=== PATIENT | male | born 1970 | race Caucasian/White ===

== ENCOUNTER 2017-10-18 19:21 | Emergency (ER) | payer OTHER ==
[~2017-10-18] VITALS: Ht 180.3 cm; Wt 102.1 kg
[~2017-10-18 19:21] MED LIST: ABAT250V; ALBU90OI; ALBU90OI INH; ALBU90OI6 INH; ASPI81CH PO; Augmentin 875-1 EACH PO; CARV25 PO; CIPR500 PO; CLIN150 PO; CLIN300 PO; CYCL10 PO; Cleocin HCl150 MG PO; FURO20 PO; GUAI600T33 PO; HYDACE5 PO; IBUP400 PO; LABE100 PO; LEVO750 PO; LOSA25 PO; MULTI VITAMIN1 EACH; NAPR500 PO; NAPR550 PO; NEOPOLDEXO LEFTEYE; Norco 5-325 Ta1 EACH PO; OXYACE5T PO; PROACE100 PO; Prednisone20 MG PO; RXPROACE PO; SERT25 PO; SPIR25 PO; ZOLP10 PO
[2017-10-18 19:45] LABS: BASOPHILS ABSOLUTE AUTO 0.06 K/mm3 (0.00-0.23); BASOPHILS PERCENT AUTO 1 % (0-2); EOSINOPHILS ABSOLUTE AUTO 0.18 K/mm3 (0.00-0.68); EOSINOPHILS PERCENT AUTO 2 % (0-6); Hematocrit 44.3 % (37.0-53.0); Hemoglobin 14.5 g/dL (13.5-17.5); IMMATURE GRAN ABSOLUTE AUTO 0.02 K/mm3 (0.00-0.10); IMMATURE GRAN PERCENT AUTO 0 % (0-1); LYMPHOCYTES ABSOLUTE AUTO 1.14 K/mm3 (0.84-5.20); LYMPHOCYTES PERCENT AUTO 14 % (21-46); MONOCYTES ABSOLUTE AUTO 0.71 K/mm3 (0.16-1.47); MONOCYTES PERCENT AUTO 9 % (4-13); Mean Corpuscular HGB 30.7 pg (26.0-34.0); Mean Corpuscular HGB Conc 32.7 g/dL (31.5-36.5); Mean Corpuscular Volume 94 fL (80-100); Mean Platelet Volume 11.2 fL (9.1-12.4); NEUTROPHILS ABSOLUTE AUTO 6.12 K/mm3 (1.96-9.15); NEUTROPHILS PERCENT AUTO 74 % (41-73); Platelet Count 226 K/mm3 (150-400); RDW Standard Deviation 48.3 fL (35.1-46.3); Red Blood Cell Count 4.72 M/mm3 (4.30-5.90); White Blood Cell Count 8.23 K/mm3 (4.00-11.30)
[2017-10-18 20:05] LABS: Alanine Aminotransfer (ALT/SGP 49 U/L (12-78); Albumin, Blood 3.2 g/dL (3.4-5.0); Albumin/Globulin Ratio 0.8 (0.8-1.8); Alk Phos 93 U/L (50-136); Anion Gap 8 mmol/L (6-16); Aspartate Aminotrans (AST/SGOT 27 U/L (12-37); Blood Urea Nitrogen 21 mg/dL (8-24); Bun/Creatinine Ratio 17.8 (12.0-20.0); CO2, Blood 23 mmol/L (21-32); Calcium, Blood 8.4 mg/dL (8.5-10.1); Chloride, Blood 108 mmol/L (98-108); Creatinine, Blood 1.18 mg/dL (0.60-1.20); Globulin, Blood 4.1 g/dL (2.2-4.0); Glomerular Filtration Rate >60 (60-); Glucose, Blood 79 mg/dL (70-99); Potassium, Blood 4.4 mmol/L (3.5-5.5); Sodium, Blood 139 mmol/L (136-145); Total Protein, Blood 7.3 g/dL (6.4-8.2); Troponin I <0.015 ng/mL (0.000-0.040)
[2017-10-28] MEDS ORDERED: FURO40 PO (12:38)
[2017-10-28] MEDS ORDERED: ENTRESTO 24 MG1 EACH PO (12:39)
[2017-10-28] MEDS ORDERED: SERT50 PO (12:40)
[2017-10-28] MEDS ORDERED: Advil200 M1 PO (12:42)
== END 2017-10-18 22:06 | disposition home or self-care (01) ==
LOC: ER 19:21
PROVIDERS: Emergency Medicine
DX: I11.0 Hypertensive heart disease with heart failure (principal); I50.9 Heart failure, unspecified; Z88.8 Allergy status to other drugs, medicaments and biological substances; Z88.1 Allergy status to other antibiotic agents; Z79.899 Other long term (current) drug therapy; Z79.82 Long term (current) use of aspirin; Z87.01 Personal history of pneumonia (recurrent)
CPT/HCPCS: 36415; 71046; 80053; 83880; 84484; 85025; 93005; 93010; 94640; 96374; 99284; J1940

== ENCOUNTER 2017-10-29 09:37 | Day surgery (SDC) | payer OTHER ==
[~2017-10-29] VITALS: Ht 180.3 cm; Wt 107.0 kg
[~2017-10-29 09:37] MED LIST changes: +Advil200 M1 PO; +ENTRESTO 24 MG1 EACH PO; +FURO40 PO; +SERT50 PO
[2017-10-30] MEDS ORDERED: HYDR-86 PO (08:32)
== END 2017-10-30 09:40 | disposition home or self-care (01) ==
LOC: MHTC 09:37 → PCU 09:37 → MHTC 09:38 → PCU 12:38 → MHTC 22:36
PROC: 0JH608Z Insertion of Defibrillator Generator into Chest Subcutaneous Tissue and Fascia, Open Approach (ICD-10-PCS; principal; 2017-10-29)
PROC: 0JH60PZ Insertion of Cardiac Rhythm Related Device into Chest Subcutaneous Tissue and Fascia, Open Approach (ICD-10-PCS; principal; 2017-10-29)
DX: I42.0 Dilated cardiomyopathy (principal); I50.9 Heart failure, unspecified; Z88.1 Allergy status to other antibiotic agents; Z79.82 Long term (current) use of aspirin; Z79.899 Other long term (current) drug therapy; Z88.8 Allergy status to other drugs, medicaments and biological substances
CPT/HCPCS: 33270; 71046; 93005; 93010; C1722; C1896; J0690; J1644; J2250; J2405; J3010; J7030; J7040

== ENCOUNTER 2018-05-21 09:18 | Emergency (ER) | payer OTHER ==
[~2018-05-21] VITALS: Ht 180.3 cm; Wt 106.6 kg
[~2018-05-21 09:18] MED LIST changes: +HYDR-86 PO
[2018-05-21] MEDS ORDERED: Veetids 500500 MG PO (10:09)
[2018-05-21] MEDS ORDERED: Ultram50 MG PO (10:09)
== END 2018-05-21 11:35 | disposition home or self-care (01) ==
LOC: ER 09:18
DX: K04.7 Periapical abscess without sinus (principal); I11.0 Hypertensive heart disease with heart failure; I50.9 Heart failure, unspecified; Z88.8 Allergy status to other drugs, medicaments and biological substances; Z88.1 Allergy status to other antibiotic agents; Z79.899 Other long term (current) drug therapy; Z79.82 Long term (current) use of aspirin
CPT/HCPCS: 36415; 41800; 96365; 96375; 99282-25; J0696; J1885

== ENCOUNTER 2019-01-24 10:17 | Emergency (ER) | payer OTHER ==
[~2019-01-24] VITALS: Ht 180.3 cm; Wt 113.4 kg
[~2019-01-24 10:17] MED LIST changes: +Ultram50 MG PO; +Veetids 500500 MG PO
[2019-01-24] MEDS ORDERED: WARF5 PO (10:59)
[2019-01-24] MEDS ORDERED: ATOR80 PO (11:00)
[2019-01-24] MEDS ORDERED: TAMS.4ER PO (11:01)
[2019-01-24] MEDS ORDERED: LOSA25 PO (11:03)
== END 2019-01-24 12:19 | disposition home or self-care (01) ==
LOC: ER 10:17
DX: S61.216A Laceration without foreign body of right little finger without damage to nail, initial encounter (principal); W26.0XXA Contact with knife, initial encounter; Z88.8 Allergy status to other drugs, medicaments and biological substances; Z88.1 Allergy status to other antibiotic agents; Z79.899 Other long term (current) drug therapy; Z79.01 Long term (current) use of anticoagulants; Z79.82 Long term (current) use of aspirin; I11.0 Hypertensive heart disease with heart failure; I50.9 Heart failure, unspecified
CPT/HCPCS: 12001; 99282-25

== ENCOUNTER 2021-04-30 16:41 | Emergency (ER) | payer OTHER ==
[~2021-04-30] VITALS: Ht 180.3 cm; Wt 120.2 kg
[~2021-04-30 16:41] MED LIST changes: +ATOR80 PO; +TAMS.4ER PO; +WARF5 PO
[2021-04-30] MEDS ORDERED: Bactrim Ds Tab1 EACH PO (17:08)
[2021-04-30] MEDS ORDERED: CEPH500 PO (17:08)
== END 2021-04-30 17:18 | disposition home or self-care (01) ==
LOC: ER 16:41
DX: L03.113 Cellulitis of right upper limb (principal); L02.413 Cutaneous abscess of right upper limb; L03.313 Cellulitis of chest wall; J86.9 Pyothorax without fistula; I11.0 Hypertensive heart disease with heart failure; I50.9 Heart failure, unspecified; Z88.8 Allergy status to other drugs, medicaments and biological substances; Z88.1 Allergy status to other antibiotic agents; Z79.899 Other long term (current) drug therapy; Z79.01 Long term (current) use of anticoagulants; Z79.82 Long term (current) use of aspirin
CPT/HCPCS: 99282

== ENCOUNTER 2022-04-03 16:57 | Emergency (ER) | payer MEDICARE, OTHER ==
[~2022-04-03] VITALS: Ht 177.8 cm; Wt 106.6 kg
[~2022-04-03 16:57] MED LIST changes: +Bactrim Ds Tab1 EACH PO; +CEPH500 PO
[2022-04-03 18:18] LABS: International Normalized Ratio 1.09; Prothrombin Time Results 11.4 Sec (9.7-11.5)
== END 2022-04-03 19:38 | disposition home or self-care (01) ==
LOC: ER 16:57
PROVIDERS: Physician Assistant
DX: S61.215A Laceration without foreign body of left ring finger without damage to nail, initial encounter (principal); I11.0 Hypertensive heart disease with heart failure; I50.9 Heart failure, unspecified; Z79.899 Other long term (current) drug therapy; Z79.01 Long term (current) use of anticoagulants; Z79.82 Long term (current) use of aspirin; W26.0XXA Contact with knife, initial encounter
CPT/HCPCS: 36415; 85610; A9270

== ENCOUNTER 2022-09-19 06:39 | Day surgery (SDC) | payer MEDICARE, OTHER ==
[~2022-09-19] VITALS: Ht 180.3 cm; Wt 113.1 kg
[2022-09-19] MEDS ORDERED: ENOX40I (07:29)
[2022-09-19] MEDS ORDERED: POTCHL20ER (07:29)
[2022-09-19] MEDS ORDERED: SPIR25 (07:29)
[2022-09-19] MEDS ORDERED: MAGNESIUM OXID500 MG (07:29)
[2022-09-19] MEDS ORDERED: FURO40 (07:30)
--- NOTE | 2022-09-19 08:04 | NUR ---
09/19/22 0804 Kierra Camara THREE ATTEMPTS AT IV. FIRST ATTEMPT IN L AC INFILTRATED BY MA. SECOND ATTEMPT BY MA IN L FOREARM INFILTRATED. THIRD ATTEMPT BY MA IN R HAND SUCESSFUL.
== END 2022-09-19 09:25 | disposition home or self-care (01) ==
LOC: ORSCSDS 06:39
PROVIDERS: Internal Medicine Gastroenterology
PROC: 0DBN8ZX Excision of Sigmoid Colon, Via Natural or Artificial Opening Endoscopic, Diagnostic (ICD-10-PCS; principal; 2022-09-19 08:00)
DX: R19.5 Other fecal abnormalities (principal); D12.5 Benign neoplasm of sigmoid colon; I42.9 Cardiomyopathy, unspecified; I10 Essential (primary) hypertension; I63.9 Cerebral infarction, unspecified; E66.9 Obesity, unspecified; Z68.34 Body mass index [BMI] 34.0-34.9, adult; Z79.01 Long term (current) use of anticoagulants; Z79.899 Other long term (current) drug therapy
CPT/HCPCS: 82947; 88305; J2704; J7120

== ENCOUNTER 2023-06-02 23:45 | Inpatient (IN) | payer MEDICARE, OTHER ==
[~2023-06-02] VITALS: Ht 180.3 cm; Wt 120.4 kg
[~2023-06-02 23:45] MED LIST changes: -ATOR80 PO; -CARV25 PO; +Carvedilol12.5 MG PO; +ENOX40I; +LIPITOR80 MG PO; +MAGNESIUM OXID500 MG PO; +POTCHL20ER PO
[2023-06-03 01:20] LABS: BASOPHILS ABSOLUTE AUTO 0.04 K/mm3 (0.00-0.23); BASOPHILS PERCENT AUTO 0 % (0-2); EOSINOPHILS ABSOLUTE AUTO 0.05 K/mm3 (0.00-0.68); EOSINOPHILS PERCENT AUTO 0 % (0-6); IMMATURE GRAN ABSOLUTE AUTO 0.07 K/mm3 (0.00-0.10); IMMATURE GRAN PERCENT AUTO 1 % (0-1); LYMPHOCYTES ABSOLUTE AUTO 0.87 K/mm3 (0.84-5.20); LYMPHOCYTES PERCENT AUTO 7 % (21-46); MONOCYTES ABSOLUTE AUTO 1.75 K/mm3 (0.16-1.47); MONOCYTES PERCENT AUTO 13 % (4-13); Mean Corpuscular HGB 32.1 pg (26.0-34.0); Mean Corpuscular HGB Conc 34.8 g/dL (31.5-36.5); Mean Corpuscular Volume 92 fL (80-100); Mean Platelet Volume 11.5 fL (9.1-12.4); NEUTROPHILS ABSOLUTE AUTO 10.32 K/mm3 (1.96-9.15); NEUTROPHILS PERCENT AUTO 79 % (41-73); Platelet Count 219 K/mm3 (150-400); RDW Coefficient Variation 14.2 % (11.7-14.2); RDW Standard Deviation 48.1 fL (35.1-46.3); Red Blood Cell Count 4.98 M/mm3 (4.30-5.90)
[2023-06-03 01:31] LABS: Albumin, Blood 3.4 g/dL (3.4-5.0); Albumin/Globulin Ratio 0.8 (0.8-1.8); Bilirubin, Total 3.5 mg/dL (0.1-1.0); Bun/Creatinine Ratio 10.1 (12.0-20.0); Calcium, Blood 8.7 mg/dL (8.5-10.1); Creatinine, Blood 0.99 mg/dL (0.60-1.20); Globulin, Blood 4.5 g/dL (2.2-4.0); Potassium, Blood 4.5 mmol/L (3.5-5.5); Total Protein, Blood 7.9 g/dL (6.4-8.2)
[2023-06-03 03:33] LABS: Influenza A, PCR NEGATIVE (NEGATIVE); Influenza B, PCR NEGATIVE (NEGATIVE); Resp Syncytial Virus, PCR NEGATIVE (NEGATIVE); SARS-Cov-2 (COVID-19) PCR, MMC NEGATIVE (NEGATIVE)
--- NOTE | 2023-06-03 07:31 | NUR ---
ARRIVAL TO PCU: Report recieved from [facility] ED RN. Patient arrived to PCU 12 vai gurney and was able to ambulate to the bed. He is alert and oriented x4. He has a history of stroke with some residual right sided weakness and some expressive aphasia. He is diaphoretic with beads of sweat on his head and cheeks. He states he has been having chest pain and shortness of breath "for a couple of days now." He is currently having 5/10 chest pain, he states the nitro worked well for his pain in the ambulance. HRR, SR in the 80s, pt has ICD. LS Clear with some crackles noted in the bases, Biox is high 90s on 2L via NC. Pt is tachypnec with activity. He states his chest pain gets worse with deep inspiration. BT+. PPP. Patient oriented to call light and room. field clerk Christine at bedside to complete history and medication list.
[2023-06-03 08:07] VITALS: BP 150/124
[2023-06-03 09:07] LABS: International Normalized Ratio 1.26; Prothrombin Time Results 13.1 Sec (9.7-11.5)
[2023-06-03] MEDS ORDERED: FURO40 PO (10:24)
[2023-06-03 11:53] VITALS: BP 107/83
[2023-06-03 15:20] VITALS: BP 104/74
--- NOTE | 2023-06-03 18:40 | NUR ---
SUMMARY: Patient was an admission from the emergency room this morning. He he has been alert and oriented T/O the shift. He has a history of CVA with some residual right sided deficits and expressive aphasia. HRR T/O the shift he has been SR-ST with a rate in the 90s-low 100s. He has an ICD. He has been C/O chest pain that is worse with deep inspiration, one dose of IV Fentanyl was given early in the shift. LS clear with crackles in the bases, he was positive for a PE and pneumonia. Biox has been high 90s at rest, with activity he gets tachypnec and his saturations drop- 2l O2 with activity. BT+, he is having some diarrhea which is new. PPP. VSS T/O the shift. He has been able to ambulate to the bathroom with a SBA using a cane on the right side. He has a Hep gtt running at 20 units/kg/hr. No other changes this shift. Will report to oncoming RN.
[2023-06-03 19:29] LABS: U Cannabinoids Screen DETECTED
[2023-06-03 19:30] LABS: U Amphetamine Screen DETECTED; U Barbituate Screen Not Detected; U Benzodiazapine Screen Not Detected; U Buprenorphine Screen Not Detected; U Cocaine Screen Not Detected; U Methadone Screen Not Detected; U Methamphetamine Screen DETECTED; U Opiates Screen Not Detected; U Oxycodone Screen Not Detected; U Phencyclidine Screen Not Detected; U Propoxyphene Screen Not Detected
[2023-06-03 21:05] VITALS: BP 114/83
[2023-06-03 23:33] VITALS: BP 109/74
[2023-06-04 03:48] VITALS: BP 99/74
[2023-06-04 04:07] LABS: BASOPHILS ABSOLUTE AUTO 0.03 K/mm3 (0.00-0.23); BASOPHILS PERCENT AUTO 0 % (0-2); EOSINOPHILS ABSOLUTE AUTO 0.02 K/mm3 (0.00-0.68); EOSINOPHILS PERCENT AUTO 0 % (0-6); Hematocrit 44.2 % (37.0-53.0); IMMATURE GRAN ABSOLUTE AUTO 0.05 K/mm3 (0.00-0.10); IMMATURE GRAN PERCENT AUTO 0 % (0-1); LYMPHOCYTES ABSOLUTE AUTO 0.82 K/mm3 (0.84-5.20); LYMPHOCYTES PERCENT AUTO 6 % (21-46); MONOCYTES PERCENT AUTO 12 % (4-13); Mean Corpuscular HGB 32.3 pg (26.0-34.0); Mean Corpuscular HGB Conc 33.9 g/dL (31.5-36.5); Mean Corpuscular Volume 95 fL (80-100); NEUTROPHILS PERCENT AUTO 82 % (41-73); Platelet Count 206 K/mm3 (150-400); RDW Coefficient Variation 14.3 % (11.7-14.2); RDW Standard Deviation 49.9 fL (35.1-46.3); Red Blood Cell Count 4.65 M/mm3 (4.30-5.90); White Blood Cell Count 14.72 K/mm3 (4.00-11.30)
[2023-06-04 04:32] LABS: Albumin/Globulin Ratio 0.7 (0.8-1.8); Bilirubin, Total 3.1 mg/dL (0.1-1.0); Calcium, Blood 8.1 mg/dL (8.5-10.1); Creatinine, Blood 1.07 mg/dL (0.60-1.20); Globulin, Blood 4.4 g/dL (2.2-4.0); Potassium, Blood 4.5 mmol/L (3.5-5.5); Total Protein, Blood 7.4 g/dL (6.4-8.2)
--- NOTE | 2023-06-04 05:30 | NUR ---
SHIFT SUMMARY PT REMAINS A/O X4. PT HAS BEEN ABLE TO MAKE NEEDS KNOWN AND PARTICIPATE IN CONVERSATION. PT HAS HX OF RIGHT SIDED CVA, RIGHT SIDED WEAKNESS NOTED. PT ALSO HAS SOME EXPRESSIVE APHASIA. PT ABLE TO AMBULATE WITH CANE SBA WITH BATHROOM PRIVLEGES. PT ON 2 L N/C, O2 SATS > 95%. PT CONTINUES TO HAVE HEMOPTYSIS, MODERATE AMOUNT. PT HAD EPISODE OF FEELING LIKE HE WAS VOMITTING, NOTHING OBSERVED IN EMESIS BAG EXCEPT FOR HEMOPTYSIS. CARDIAC MONITORING HAS REFLECTED NSR THIS SHIFT, HR 90s. HEPARIN GTT INFUSING. BLE PULSES PALPABLE. SENSATION INTACT IN RIGHT LEG. PT HAS HAD 1 EPISODE OF DIARRHEA THIS SHIFT. WILL CONTINUE TO MONITOR UNTIL CARE IS TRANSITIONED TO DAY SHIFT.
--- NOTE | 2023-06-04 08:15 | NUR ---
AM ASSESSMENT: Pt sitting up in chair finishing breakfast. Pt appears uncomfortable, especially with cough and deep breath. Rates pain 7/10. Will notify physician. LS with crackles and exp wheeze noted. Coughing up thick, bloody sputum. HR reg. BT positive. Pulses palp. R leg with +1 edema noted. Denies pain in leg. Grasps equal but weak. Pt Oriented x 4, sometimes slow to answer. Call light in reach. Will continue to monitor.
[2023-06-04 08:36] VITALS: BP 117/85
[2023-06-04 11:05] VITALS: BP 110/84
--- NOTE | 2023-06-04 13:16 | NUR ---
update: Pt resting in bed. States pain is improved and rates it a 11/24. Was able to titrate patient off of oxygen, biox 94% on RA. Pt tolerating well. Call light in reach. Will continue to monitor.
[2023-06-04 15:12] VITALS: BP 102/77
--- NOTE | 2023-06-04 18:08 | NUR ---
Shift Summary: Pt resting in bed currently. Appears comfortable. Was able to titrate oxygen to off today but turned back to 2L when up to bathroom. Pt tolerating well. Pt had C/O 7/10 pain this am. Was treated per orders and pain has since been controlled throughout the shift. Currently pt pain is 5/10 and denies wanting anything for pain. Pt has occasionally coughed up bloody sputum. No changes in RLE appearance and no Neurologic changes. Heprin gtt and TKO fluid running per orders. Stable at end of shift. Will report to night RN.
[2023-06-04 20:22] VITALS: BP 108/81
[2023-06-04 20:22] LABS: Vancomycin, Trough 15.2 ug/mL (5.0-10.0)
[2023-06-04 23:11] VITALS: BP 108/77
[2023-06-05 03:02] VITALS: BP 105/82
--- NOTE | 2023-06-05 04:48 | NUR ---
SHIFT SUMMARY NO ACUTE CHANGES THIS SHIFT. VSS. AXO4. HEPARIN GTT INFUSING. ON 1-3L PER COMFORT/EXERTIONAL NEEDS THIS SHIFT. PT HAS REQUIRED PAIN MEDS X1 THIS SHIFT SO FAR, STATES ONLY WANTING THEM WHEN PAIN IS AT A 6-7/10 OR HIGHER. PT CONTINUES WITH SCANT BLOODY SPUTUM WITH COUGHING. PT REMAINS CONTINENT. POWERGLIDE REMAINS PATENT. PT RESTING THIS SHIFT
[2023-06-05 05:11] LABS: BASOPHILS ABSOLUTE AUTO 0.03 K/mm3 (0.00-0.23); BASOPHILS PERCENT AUTO 0 % (0-2); EOSINOPHILS ABSOLUTE AUTO 0.06 K/mm3 (0.00-0.68); EOSINOPHILS PERCENT AUTO 1 % (0-6); Hematocrit 40.4 % (37.0-53.0); Hemoglobin 13.6 g/dL (13.5-17.5); IMMATURE GRAN ABSOLUTE AUTO 0.04 K/mm3 (0.00-0.10); IMMATURE GRAN PERCENT AUTO 0 % (0-1); LYMPHOCYTES ABSOLUTE AUTO 0.87 K/mm3 (0.84-5.20); LYMPHOCYTES PERCENT AUTO 8 % (21-46); MONOCYTES ABSOLUTE AUTO 1.28 K/mm3 (0.16-1.47); MONOCYTES PERCENT AUTO 12 % (4-13); Mean Corpuscular HGB 32.1 pg (26.0-34.0); Mean Corpuscular HGB Conc 33.7 g/dL (31.5-36.5); Mean Corpuscular Volume 95 fL (80-100); Mean Platelet Volume 11.4 fL (9.1-12.4); NEUTROPHILS ABSOLUTE AUTO 8.43 K/mm3 (1.96-9.15); NEUTROPHILS PERCENT AUTO 79 % (41-73); Platelet Count 204 K/mm3 (150-400); RDW Coefficient Variation 14.4 % (11.7-14.2); RDW Standard Deviation 50.4 fL (35.1-46.3); Red Blood Cell Count 4.24 M/mm3 (4.30-5.90); White Blood Cell Count 10.71 K/mm3 (4.00-11.30)
[2023-06-05 05:32] LABS: Albumin, Blood 2.6 g/dL (3.4-5.0); Anion Gap 5 mmol/L (6-16); Blood Urea Nitrogen 12 mg/dL (8-24); Bun/Creatinine Ratio 11.1 (12.0-20.0); CO2, Blood 26 mmol/L (21-32); Calcium, Blood 7.8 mg/dL (8.5-10.1); Chloride, Blood 103 mmol/L (98-108); Creatinine, Blood 1.08 mg/dL (0.60-1.20); Glomerular Filtration Rate 83 (60-); Glucose, Blood 117 mg/dL (70-99); Magnesium, Blood 2.2 mg/dL (1.6-2.4); Phosphorus, Blood 2.1 mg/dL (2.5-4.9); Potassium, Blood 3.9 mmol/L (3.5-5.5); Sodium, Blood 134 mmol/L (136-145)
[2023-06-05 07:57] VITALS: BP 125/75
[2023-06-05 12:53] VITALS: BP 106/89
[2023-06-05 16:40] VITALS: BP 108/74
[2023-06-05 16:51] LABS: International Normalized Ratio 1.33; Prothrombin Time Results 13.7 Sec (9.7-11.5)
--- NOTE | 2023-06-05 18:28 | NUR ---
ASSUMED CARE OF PT AT 0700 THIS AM. NO ACUTE CHANGES T/O THE SHIFT. PT IS NOW ON RA, SPO2 > 95%, NON-TELE MEDICAL STATUS. HEPARIN GTT INFUSING PER MD ORDERS. PT ABLE TO AMBULATE IN ROOM, OOB TO CHAIR THIS AM. REQUESTED PO PAIN MEDICATION TODAY IN ADDITION TO IV MEDICATION, PT REPORTS HIS PAIN IS BETTER CONTROLLED. PT'S FAMILY AT BEDSIDE THIS AFTERNOON, UPDATED ON PT'S CONDITION AND PLANS FOR POSSIBLE D/C IN AM. PT RESTARTED ON WARFARIN THIS EVENING PER MD ORDER. PT IS ABLE TO USE CALL LIGHT FOR NEEDS, CALL LIGHT IN REACH, VSS T/O THE SHIFT. WILL CONINTUE TO MONITOR AND GIVE REPORT TO NOC SHIFT RN.
[2023-06-05 20:27] VITALS: BP 106/84
[2023-06-05 23:41] VITALS: BP 119/86
--- NOTE | 2023-06-06 05:46 | NUR ---
shift summary patient is alert and oriented x4. perrla. patient is indepdent in the room. patient vital signs stable. spo2 >90% on room air. med status no tele. see shift assessment for further detials. patient reports no pain, chest pain/pressure or shortness of breath. plan of care is up to date. call light within reach
[2023-06-06 06:23] LABS: BASOPHILS ABSOLUTE AUTO 0.04 K/mm3 (0.00-0.23); BASOPHILS PERCENT AUTO 1 % (0-2); EOSINOPHILS ABSOLUTE AUTO 0.25 K/mm3 (0.00-0.68); EOSINOPHILS PERCENT AUTO 3 % (0-6); Hematocrit 40.5 % (37.0-53.0); Hemoglobin 13.3 g/dL (13.5-17.5); IMMATURE GRAN ABSOLUTE AUTO 0.03 K/mm3 (0.00-0.10); IMMATURE GRAN PERCENT AUTO 0 % (0-1); LYMPHOCYTES ABSOLUTE AUTO 0.97 K/mm3 (0.84-5.20); LYMPHOCYTES PERCENT AUTO 12 % (21-46); MONOCYTES ABSOLUTE AUTO 1.25 K/mm3 (0.16-1.47); MONOCYTES PERCENT AUTO 15 % (4-13); Mean Corpuscular HGB 31.4 pg (26.0-34.0); Mean Corpuscular HGB Conc 32.8 g/dL (31.5-36.5); Mean Corpuscular Volume 96 fL (80-100); Mean Platelet Volume 11.1 fL (9.1-12.4); NEUTROPHILS ABSOLUTE AUTO 5.56 K/mm3 (1.96-9.15); NEUTROPHILS PERCENT AUTO 69 % (41-73); Platelet Count 221 K/mm3 (150-400); RDW Coefficient Variation 14.5 % (11.7-14.2); RDW Standard Deviation 51.1 fL (35.1-46.3); Red Blood Cell Count 4.24 M/mm3 (4.30-5.90)
[2023-06-06 07:05] LABS: Bun/Creatinine Ratio 12.4 (12.0-20.0); Calcium, Blood 8.4 mg/dL (8.5-10.1); Creatinine, Blood 1.13 mg/dL (0.60-1.20); Potassium, Blood 4.4 mmol/L (3.5-5.5)
[2023-06-06 07:15] VITALS: BP 130/98
[2023-06-06 07:46] LABS: International Normalized Ratio 1.36
[2023-06-06 08:55] LABS: Vancomycin, Trough 18.3 ug/mL (5.0-10.0)
[2023-06-06 12:03] VITALS: BP 128/84
--- NOTE | 2023-06-06 12:34 | NUR ---
AT AROUND 1000 PT HAD EPISOE OF HEMOPTYSIS, HEPARIN WAS STOPPED, RESOLVED WITHIN A FEW MINUTES. PHARMACY AND MD NOTIFIED. STARTED PT BACK ON HEPARIN PER EMAR. NO MORE EPISODES OF HEMOPTYSIS. AT BEGINNING OF SHIFT PT STATED 7/10 R CHEST PAIN, MEDICATED PER EMAR, AND PAIN CAME DOWN TO 5/10. PT HAD ANOTHER EPISODE OF 7/10 R CHEST PAIN AFTER WITH NAUSEA WELL, PT MEDICATED PER EMAR. PT NOW HAS 4/10 R CHEST PAIN, AND NO MORE NAUSEA. PT IS ALERT AND ORIENTED X 4, ANSWERS QUESTIONS APPROPRIATELY AND ABLE TO MAKE NEEDS KNOWN. PT HAS PARTIAL DENTURES. PT STATED HE HAS APHASIA FROM PAST STROKE. PT ON TELE, BP STABLE, HR SR/ST PAC/PVC. PT HAS HAD INTERMITTENT EPISODES OF SOB AT REST, ON RA, O2 SATURATION REMAINS ABOVE 92%. PT HAS POWERGLIDE TO R UPPER ARM, FLUSHED AND SALINE LOCKED WHEN NOT INFUSING. IV ON R WRIST, HEPARIN GTT RUNNING. PT'S GIRLFRIEND HAS BEEN IN THE ROOM WITH HIM ALL DAY. PT IS SITTING UP IN CHAIR, EATING LUNCH, WATCHING TV, VISITING WITH GIRLFRIEND, CALL [facility] WITHIN REACH.
[2023-06-06 15:03] VITALS: BP 111/74
[2023-06-06 15:41] LABS: Anti-Xa UFH, PHA Monitoring 0.35 IU/mL
--- NOTE | 2023-06-06 17:48 | NUR ---
SHIFT SUMMARY NO ACUTE CHANGES, SEE PREVIOUS NOTES. PT HAD ONE MORE SMALL EPISODE OF HEMOPTYSIS WHEN USING RESTROOM, RESOLVED QUICKLY. PT CONTINUES TO BE ALERT AND ORIENTED X4, ABLE TO MAKE NEEDS KNOWN. VITALS STABLE, PT ON RA AND DENIES SOB AT REST. PT CONTINUES TO HAVE R SIDED CHEST PAIN, MEDICATED PER EMAR. PT VISITED WITH HIS PARENTS THIS EVENING. IV AND POWERGLIDE STILL PATENT, NO REDNESS, SWELLING, PAIN OF SITE. PT WALKED DOWN TO WINDOWS BY ELEVATORS TODAY AND BACK TO HIS ROOM WITH MY ASSISTANCE, PT TOLERATED WELL, STARTED TO GET A LITTLE SOB TOWARDS THE END. PT RESTING IN HIS BED WATCHING TV, CALL LIGHT WITHIN REACH.
[2023-06-06 19:43] VITALS: BP 116/82
[2023-06-06 23:15] VITALS: BP 112/81
[2023-06-07 03:20] VITALS: BP 119/81
[2023-06-07 03:30] LABS: Hematocrit 40.4 % (37.0-53.0); Hemoglobin 13.5 g/dL (13.5-17.5); Mean Platelet Volume 10.8 fL (9.1-12.4); Platelet Count 238 K/mm3 (150-400)
[2023-06-07 03:47] LABS: International Normalized Ratio 1.96; Prothrombin Time Results 19.8 Sec (9.7-11.5)
--- NOTE | 2023-06-07 04:50 | NUR ---
SHIFT SUMMARY NO ACUTE CHANGES OVERNIGHT. NO NOTED HEMOPTYSIS. VITALS STABLE. DENIES SOB AT REST. PT CONTINUES TO HAVE PAIN IN RIGHT CHEST; MEDICATING PER EMAR. PT CALLING APPROPRIATELY. A&O. HEP GTT INFUSING PER EMAR. BED IN LOWEST POSITION AND CALL LIGHT WITHIN REACH. SEE ASSESSMENT. THIS RN WILL REPORT TO ONCOMING DAYSHIFT RN.
[2023-06-07 07:47] VITALS: BP 124/87
--- NOTE | 2023-06-07 14:29 | NUR ---
PT TRANSFERRED TO 303 REPORT GIVEN TO [place]. PT HAS BEEN COOPERATIVE AND COMPLIANT WITH CARES, INCENTIVE SPIROMETER PROVIDED FOR LUNG EXERCISES. PT HAS BEEN AMBULATING TO THE BATHROOM SBA. UP IN THE CHAIR FOR MEALS. PT WITH ONSET OF CHEST PAIN 2-6/10 PAIN LEVEL MANAGED BY PAIN MEDICINE. PT REMAINS ON RA, SATS ABOVE 95%. BLOOD TINGED SPUTUM X1 THIS MORNING. REMAINS ON HEPARIN GTT AT 21U/KG/HR PHARMACY TO MANAGE CURRENTLY BRIDGING TO COUMADIN UNTIL INR IS THERPEUTIC. MOTHER AND GIRLFRIEND AT THE BEDSIDE DURING TRANSFER. ALL BELONGINGS SENT WITH THE PT, PT ACCOMPANIED VIA WHEELCHAIR FOR TRANSFERS. ACCOMPANIED BY PCT FOR TRANSFER
[2023-06-07 14:31] VITALS: BP 107/72
--- NOTE | 2023-06-07 19:05 | NUR ---
SHIFT SUMMARY: ASSUMED CARE OF PATIENT AT 1418 UPON HIS TRANSFER FROM PCU 12. A&O X 3, PLEASANT. HEPARIN GTT INFUSING AT 21 UNIT/KG/HR (38.6 ML/HR) IN TO RFA IV, SITE WNL. TELEMETRY VERIFIED, SR 83. STATED PAIN WELL CONTROLLED AT THIS TIME. ON ROOM AIR, DENIED SOB BUT SLIGHT LOPEZ NOTED. GF AND MOTHER IN ROOM.
[2023-06-07 19:14] VITALS: BP 130/92
[2023-06-08 03:37] VITALS: BP 112/78
[2023-06-08 05:21] LABS: Hematocrit 42.3 % (37.0-53.0); Hemoglobin 14.3 g/dL (13.5-17.5); Mean Corpuscular HGB 31.8 pg (26.0-34.0); Mean Corpuscular HGB Conc 33.8 g/dL (31.5-36.5); Mean Corpuscular Volume 94 fL (80-100); Mean Platelet Volume 11.2 fL (9.1-12.4); Platelet Count 255 K/mm3 (150-400); RDW Coefficient Variation 14.1 % (11.7-14.2); RDW Standard Deviation 49.1 fL (35.1-46.3); Red Blood Cell Count 4.49 M/mm3 (4.30-5.90); White Blood Cell Count 6.47 K/mm3 (4.00-11.30)
[2023-06-08 05:31] LABS: Anti-Xa UFH, PHA Monitoring 0.53 IU/mL; International Normalized Ratio 2.86; Prothrombin Time Results 28.3 Sec (9.7-11.5)
--- NOTE | 2023-06-08 05:32 | NUR ---
SHIFT SUMMARY NOC PT A/O X 4 WITH SOME EXPRESSIVE APHASIA. PT HAS R LUNG PE AND IS ON HEPARIN DRIP WITH COUMADIN BRIDGE. PT ALSO HAD ULTRASOUND VEIN DUPLEX PERFORMED FOR POSSIBLE R LEG DVT, AWAITING RESULTS. PT RECEIVED FIRST DOSE OF COUMADIN YESTERDAY ALONGSIDE HEPARIN DRIP. PLAN IS TO CHECK INR IN MORNING AND IF WITHIN THERAPEUTIC LEVEL PT MAY BE ABLE TO DISCHARGE TODAY. PT HAS PG IN [place] INFUSING HEPARIN @ 38.6 ML/HR. LFA IV ACCESS BEING UTILIZED FOR EMPIRIC ABX TREATMENT FOR PNA. PT ON TELE RUNNING SINUS RHYTHM @ 73 BPM. PT IS CURRENTLY RESTING WITH BED IN LOWEST POSITION, AND CALL LIGHT WITHIN REACH.
[2023-06-08 05:36] LABS: Albumin, Blood 2.9 g/dL (3.4-5.0); Anion Gap 4 mmol/L (6-16); Blood Urea Nitrogen 15 mg/dL (8-24); Bun/Creatinine Ratio 14.4 (12.0-20.0); CO2, Blood 29 mmol/L (21-32); Calcium, Blood 8.9 mg/dL (8.5-10.1); Chloride, Blood 103 mmol/L (98-108); Creatinine, Blood 1.04 mg/dL (0.60-1.20); Glomerular Filtration Rate 86 (60-); Glucose, Blood 113 mg/dL (70-99); Magnesium, Blood 2.3 mg/dL (1.6-2.4); Phosphorus, Blood 3.5 mg/dL (2.5-4.9); Potassium, Blood 4.3 mmol/L (3.5-5.5); Sodium, Blood 136 mmol/L (136-145)
[2023-06-08 07:33] VITALS: BP 130/90
[2023-06-08] MEDS ORDERED: DOXY100 PO (10:19)
[2023-06-08] MEDS ORDERED: FURO20 PO (10:23)
[2023-06-08] MEDS ORDERED: Percocet 5-3251 EACH PO (10:25)
--- NOTE | 2023-06-08 12:26 | NUR ---
PT DISCHARGED AT 1225 WITH NO DISTRESS NOTED. ALL PAPERWORK REVIEWED AND EDUCATIONAL MATERIAL SENT. PT HAS BEEN INDEPENDENT IN ROOM AND CALLS APPROPRIATELY. ESCORTED OUT VIA WHEELCHAIR BY AID.
== END 2023-06-08 12:45 | disposition home or self-care (01) | DRG 175 ==
LOC: ER 23:45 → PCU 06-03 06:05 → MEDS 06-07 14:17
PROVIDERS: Emergency Medicine; Internal Medicine; ADMIT Internal Medicine
PROC: B24BZZZ Ultrasonography of Heart with Aorta (ICD-10-PCS; principal; 2023-06-03)
DX: I26.99 Other pulmonary embolism without acute cor pulmonale (principal); J15.69 Pneumonia due to other Gram-negative bacteria; J96.01 Acute respiratory failure with hypoxia; I50.22 Chronic systolic (congestive) heart failure; D68.59 Other primary thrombophilia; R04.2 Hemoptysis; I42.0 Dilated cardiomyopathy; I82.411 Acute embolism and thrombosis of right femoral vein; Z11.52 Encounter for screening for COVID-19; I11.0 Hypertensive heart disease with heart failure; G89.29 Other chronic pain; M54.9 Dorsalgia, unspecified; E78.5 Hyperlipidemia, unspecified; Z95.810 Presence of automatic (implantable) cardiac defibrillator; Z79.01 Long term (current) use of anticoagulants; Z86.73 Personal history of transient ischemic attack (TIA), and cerebral infarction without residual deficits; Z88.8 Allergy status to other drugs, medicaments and biological substances; Z88.1 Allergy status to other antibiotic agents; Z86.718 Personal history of other venous thrombosis and embolism
CPT/HCPCS: 0241U; 36415; 71045; 71260; 74177; 80048; 80053; 80069; 80202; 83605; 83690; 83735; 84145; 84484; 85014; 85018; 85025; 85027; 85049; 85379; 85520; 85610; 85730; 87040; 93005; 93010; 93970; 94760; 94762; 96365; 96375; 99285; A9270; C8929; J0696; J1644; J1885; J2405; J2543; J3010; J3370; J7030; J7050; Q9957; Q9967

== ENCOUNTER 2023-06-13 19:03 | Emergency (ER) | payer MEDICARE, OTHER ==
[~2023-06-13] VITALS: Ht 180.3 cm; Wt 114.3 kg
[~2023-06-13 19:03] MED LIST changes: +DOXY100 PO; +Percocet 5-3251 EACH PO
[2023-06-13 19:09] VITALS: BP 132/87
[2023-06-13] MEDS ORDERED: OXYC5 PO (19:12)
== END 2023-06-13 19:49 | disposition home or self-care (01) ==
LOC: ER 19:03
DX: Z76.0 Encounter for issue of repeat prescription (principal); Z88.8 Allergy status to other drugs, medicaments and biological substances; Z88.1 Allergy status to other antibiotic agents; Z79.899 Other long term (current) drug therapy; Z79.01 Long term (current) use of anticoagulants; I11.0 Hypertensive heart disease with heart failure; I50.9 Heart failure, unspecified; F17.290 Nicotine dependence, other tobacco product, uncomplicated
CPT/HCPCS: 99281; A9270

== ENCOUNTER 2023-06-19 03:14 | Emergency (ER) | payer MEDICARE, OTHER ==
[~2023-06-19] VITALS: Ht 180.3 cm; Wt 115.7 kg
[~2023-06-19 03:14] MED LIST changes: +OXYC5 PO
[2023-06-19 03:57] LABS: BASOPHILS ABSOLUTE AUTO 0.06 K/mm3 (0.00-0.23); BASOPHILS PERCENT AUTO 1 % (0-2); EOSINOPHILS ABSOLUTE AUTO 0.27 K/mm3 (0.00-0.68); EOSINOPHILS PERCENT AUTO 5 % (0-6); Hematocrit 44.7 % (37.0-53.0); Hemoglobin 15.7 g/dL (13.5-17.5); IMMATURE GRAN ABSOLUTE AUTO 0.02 K/mm3 (0.00-0.10); IMMATURE GRAN PERCENT AUTO 0 % (0-1); LYMPHOCYTES ABSOLUTE AUTO 1.56 K/mm3 (0.84-5.20); LYMPHOCYTES PERCENT AUTO 28 % (21-46); MONOCYTES ABSOLUTE AUTO 0.67 K/mm3 (0.16-1.47); MONOCYTES PERCENT AUTO 12 % (4-13); Mean Corpuscular HGB Conc 35.1 g/dL (31.5-36.5); Mean Corpuscular Volume 91 fL (80-100); NEUTROPHILS ABSOLUTE AUTO 3.01 K/mm3 (1.96-9.15); NEUTROPHILS PERCENT AUTO 54 % (41-73); Platelet Count 359 K/mm3 (150-400); RDW Coefficient Variation 13.7 % (11.7-14.2); RDW Standard Deviation 46.4 fL (35.1-46.3); White Blood Cell Count 5.59 K/mm3 (4.00-11.30)
[2023-06-19 04:17] LABS: International Normalized Ratio 2.74; Prothrombin Time Results 27.2 Sec (9.7-11.5)
[2023-06-19 04:21] LABS: Albumin, Blood 3.4 g/dL (3.4-5.0); Albumin/Globulin Ratio 0.7 (0.8-1.8); Bilirubin, Total 0.9 mg/dL (0.1-1.0); Bun/Creatinine Ratio 21.2 (12.0-20.0); Calcium, Blood 8.6 mg/dL (8.5-10.1); Creatinine, Blood 0.94 mg/dL (0.60-1.20); Globulin, Blood 4.6 g/dL (2.2-4.0); Potassium, Blood 3.6 mmol/L (3.5-5.5)
[2023-06-19 06:33] VITALS: BP 107/65
== END 2023-06-19 06:33 | disposition home or self-care (01) ==
LOC: ER 03:14
PROVIDERS: Emergency Medicine
DX: R07.9 Chest pain, unspecified (principal); Z88.8 Allergy status to other drugs, medicaments and biological substances; Z88.1 Allergy status to other antibiotic agents; Z79.899 Other long term (current) drug therapy; Z79.01 Long term (current) use of anticoagulants; Z86.711 Personal history of pulmonary embolism; I11.0 Hypertensive heart disease with heart failure; I50.9 Heart failure, unspecified
CPT/HCPCS: 71045; 80053; 83880; 84484; 85025; 85610; 93005; 93010; 96374; 96375; 99285-25; J2405; J3010

== ENCOUNTER 2024-06-10 07:44 | Emergency (ER) | payer MEDICARE ==
[~2024-06-10] VITALS: Ht 180.3 cm; Wt 120.2 kg
[2024-06-10] MEDS ORDERED: Ketorolac Tromethamine 30mg Vial IV ONE (08:15)
[2024-06-10] MEDS ORDERED: NS 1,000 ML IV SCH (08:15)
[2024-06-10 08:26] LABS: BASOPHILS ABSOLUTE AUTO 0.06 K/mm3 (0.00-0.23); BASOPHILS PERCENT AUTO 1 % (0-2); EOSINOPHILS ABSOLUTE AUTO 0.09 K/mm3 (0.00-0.68); EOSINOPHILS PERCENT AUTO 1 % (0-6); Hematocrit 44.9 % (37.0-53.0); Hemoglobin 15.1 g/dL (13.5-17.5); IMMATURE GRAN ABSOLUTE AUTO 0.03 K/mm3 (0.00-0.10); IMMATURE GRAN PERCENT AUTO 0 % (0-1); LYMPHOCYTES ABSOLUTE AUTO 1.69 K/mm3 (0.84-5.20); LYMPHOCYTES PERCENT AUTO 19 % (21-46); MONOCYTES ABSOLUTE AUTO 0.91 K/mm3 (0.16-1.47); MONOCYTES PERCENT AUTO 10 % (4-13); Mean Corpuscular HGB 31.1 pg (26.0-34.0); Mean Corpuscular HGB Conc 33.6 g/dL (31.5-36.5); Mean Corpuscular Volume 93 fL (80-100); Mean Platelet Volume 11.5 fL (9.1-12.4); NEUTROPHILS ABSOLUTE AUTO 6.37 K/mm3 (1.96-9.15); NEUTROPHILS PERCENT AUTO 70 % (41-73); Platelet Count 262 K/mm3 (150-400); RDW Coefficient Variation 13.7 % (11.7-14.2); RDW Standard Deviation 46.5 fL (35.1-46.3); Red Blood Cell Count 4.85 M/mm3 (4.30-5.90); White Blood Cell Count 9.15 K/mm3 (4.00-11.30)
[2024-06-10 08:37] LABS: Albumin, Blood 3.3 g/dL (3.4-5.0); Albumin/Globulin Ratio 0.9 (0.8-1.8); Bilirubin, Total 0.9 mg/dL (0.1-1.0); Bun/Creatinine Ratio 12.5 (12.0-20.0); Calcium, Blood 8.9 mg/dL (8.5-10.1); Creatinine, Blood 1.2 mg/dL (0.60-1.20); Globulin, Blood 3.7 g/dL (2.2-4.0); Magnesium, Blood 1.9 mg/dL (1.6-2.4); Potassium, Blood 3.9 mmol/L (3.5-5.5)
[2024-06-10 08:44] LABS: International Normalized Ratio 2.65; Prothrombin Time Results 26.4 Sec (9.7-11.5)
[2024-06-10 09:28] LABS: Influenza A, PCR NEGATIVE (NEGATIVE); Influenza B, PCR NEGATIVE (NEGATIVE); Resp Syncytial Virus, PCR NEGATIVE (NEGATIVE); SARS-Cov-2 (COVID-19) PCR, MMC NEGATIVE (NEGATIVE)
[2024-06-10] MEDS ORDERED: Furosemide 10 MG/ML 4ML Vial IV ONE (11:00)
[2024-06-10] MEDS ORDERED: FURO20 PO (11:09)
[2024-06-10 11:25] VITALS: BP 116/98
== END 2024-06-10 11:25 | disposition home or self-care (01) ==
LOC: ER 07:44
PROVIDERS: Student in an Organized Health Care Education/Training Program
DX: I11.0 Hypertensive heart disease with heart failure (principal); I50.20 Unspecified systolic (congestive) heart failure; J06.9 Acute upper respiratory infection, unspecified; R79.1 Abnormal coagulation profile; Z86.73 Personal history of transient ischemic attack (TIA), and cerebral infarction without residual deficits; Z79.01 Long term (current) use of anticoagulants; Z79.899 Other long term (current) drug therapy; Z88.1 Allergy status to other antibiotic agents; Z88.8 Allergy status to other drugs, medicaments and biological substances
CPT/HCPCS: 0241U; 71260; 80053; 83735; 83880; 84145; 84484; 85025; 85610; 93005; 93010; 96374; 96375; 99284-25; J1885; J1940; J7030; Q9967

== ENCOUNTER 2024-12-29 07:30 | Inpatient (IN) | payer MEDICARE ==
[~2024-12-29] VITALS: Ht 180.3 cm; Wt 123.8 kg
[~2024-12-29 07:30] MED LIST changes: +CEFP200 PO; +JARDIANCE10 MG PO; +LACT PO; +METO25ER PO
[2024-12-29 07:55] LABS: BASOPHILS ABSOLUTE AUTO 0.04 K/mm3 (0.00-0.23); BASOPHILS PERCENT AUTO 0 % (0-2); EOSINOPHILS ABSOLUTE AUTO 0.02 K/mm3 (0.00-0.68); EOSINOPHILS PERCENT AUTO 0 % (0-6); Hematocrit 45.5 % (37.0-53.0); Hemoglobin 15.9 g/dL (13.5-17.5); IMMATURE GRAN ABSOLUTE AUTO 0.05 K/mm3 (0.00-0.10); IMMATURE GRAN PERCENT AUTO 0 % (0-1); LYMPHOCYTES ABSOLUTE AUTO 1.17 K/mm3 (0.84-5.20); LYMPHOCYTES PERCENT AUTO 10 % (21-46); MONOCYTES ABSOLUTE AUTO 1.38 K/mm3 (0.16-1.47); MONOCYTES PERCENT AUTO 12 % (4-13); Mean Corpuscular HGB 32.2 pg (26.0-34.0); Mean Corpuscular HGB Conc 34.9 g/dL (31.5-36.5); Mean Corpuscular Volume 92 fL (80-100); Mean Platelet Volume 10.7 fL (9.1-12.4); NEUTROPHILS ABSOLUTE AUTO 9.38 K/mm3 (1.96-9.15); NEUTROPHILS PERCENT AUTO 78 % (41-73); Platelet Count 236 K/mm3 (150-400); RDW Coefficient Variation 13.3 % (11.7-14.2); RDW Standard Deviation 44.3 fL (35.1-46.3); Red Blood Cell Count 4.94 M/mm3 (4.30-5.90); White Blood Cell Count 12.04 K/mm3 (4.00-11.30)
[2024-12-29] MEDS ORDERED: Crestor40 MG PO (08:06)
[2024-12-29] MEDS ORDERED: Carvedilol12.5 MG PO (08:06)
[2024-12-29] MEDS ORDERED: CALCIUM CARBON500 M4 PO (08:08)
[2024-12-29 08:09] LABS: International Normalized Ratio 1.84; Prothrombin Time Results 18.8 Sec (9.7-11.5)
[2024-12-29] MEDS ORDERED: FOLIC ACID0.8 MG PO (08:09)
[2024-12-29 08:19] LABS: Albumin, Blood 3.2 g/dL (3.4-5.0); Albumin/Globulin Ratio 0.8 (0.8-1.8); Bilirubin, Total 3.6 mg/dL (0.1-1.0); Calcium, Blood 8.7 mg/dL (8.5-10.1); Creatinine, Blood 1.05 mg/dL (0.60-1.20); Potassium, Blood 3.6 mmol/L (3.5-5.5); Total Protein, Blood 7.2 g/dL (6.4-8.2)
[2024-12-29] MEDS ORDERED: Morphine Sulfate 4 MG/1 ML Injection IV ONE (08:25)
[2024-12-29] MEDS ORDERED: Ondansetron HCl 2 MG / ML 2ML Vial IV ONE (08:35)
[2024-12-29] MEDS ORDERED: Furosemide 10 MG/ML 4ML Vial IV ONE (10:50)
[2024-12-29] MEDS ORDERED: Nitroglycerin 0.4 MG SUBL SL PRN (12:50)
[2024-12-29] MEDS ORDERED: HYDROmorphone HCl/Pf 1MG SYR IV PRN (12:55)
[2024-12-29] MEDS ORDERED: OxyCODONE HCL 5 MG TAB PO PRN (12:55)
[2024-12-29 14:08] VITALS: BP 129/95
--- NOTE | 2024-12-29 14:34 | NUR ---
Pt arrived to room 342 via gurney from ED, he was able to transfer himself to bed, uses a cane to ambulate at baseline, a/ox4, pleasant and cooperative with care, follows commands well, oriented to room layout and call system, lungs are clear t/o, resp even and unlabored, no cough noted, reports 5/10 chest pain, points to just left of mid sternum, states is worse with deep breath, occ nonproductive cough, on r/a, hrr distant sounds, ppp+2, cap refill<3 sec, vs stable, afebrile, piv to lac site is clear and patent, btx4, abd flat soft nontender, last bm this am, states was loose, reports he is voiding without diff, skin c/w/d, patricia plasencia, call light in reach.
[2024-12-29] MEDS ORDERED: Furosemide 10 MG/ML 4ML Vial IV SCH (16:00)
[2024-12-29] MEDS ORDERED: Carvedilol 6.25 MG Tab PO SCH (17:00)
--- NOTE | 2024-12-29 17:35 | NUR ---
Pt. is awake, but is actively nauseas using an emesis bag. Friend is at bedside. This electrician technician introduced himself, but reading the room offred to pray for the Pt. and return in the moring. The Pt. nodded in agreement. Prayed with the Pt. Ptt. verbalized gratitude and welcomed this electrician technician to return in the morning.
[2024-12-29] MEDS ORDERED: Warfarin Sodium 5 MG Tab PO SCH (18:00)
[2024-12-29] MEDS ORDERED: Warfarin Sodium 7.5 MG Tab PO SCH (18:00)
--- NOTE | 2024-12-29 18:36 | NUR ---
pt sleeping, wakes easily for dinner, continues to cough up blood tinged sputum. will hold coumadin tonight per call light in reach.
[2024-12-29] MEDS ORDERED: Warfarin Sodium 7.5 MG Tab PO ONE (19:55)
[2024-12-29 19:56] VITALS: BP 119/81
[2024-12-29] MEDS ORDERED: Enoxaparin 120 MG/0.8 ML SYR SC SCH (20:00)
[2024-12-29] MEDS ORDERED: Enoxaparin 100 MG/ML 1ML SYR SC SCH (20:00)
[2024-12-30] VITALS (8 sets, daily range): BP systolic 98–133; BP diastolic 61–97
[2024-12-30 05:52] LABS: BASOPHILS ABSOLUTE AUTO 0.05 K/mm3 (0.00-0.23); BASOPHILS PERCENT AUTO 0 % (0-2); EOSINOPHILS ABSOLUTE AUTO 0.09 K/mm3 (0.00-0.68); EOSINOPHILS PERCENT AUTO 1 % (0-6); Hematocrit 43.9 % (37.0-53.0); Hemoglobin 15.1 g/dL (13.5-17.5); IMMATURE GRAN ABSOLUTE AUTO 0.05 K/mm3 (0.00-0.10); IMMATURE GRAN PERCENT AUTO 0 % (0-1); LYMPHOCYTES ABSOLUTE AUTO 1.06 K/mm3 (0.84-5.20); LYMPHOCYTES PERCENT AUTO 9 % (21-46); MONOCYTES ABSOLUTE AUTO 1.69 K/mm3 (0.16-1.47); MONOCYTES PERCENT AUTO 14 % (4-13); Mean Corpuscular HGB 31.7 pg (26.0-34.0); Mean Corpuscular HGB Conc 34.4 g/dL (31.5-36.5); Mean Corpuscular Volume 92 fL (80-100); Mean Platelet Volume 10.4 fL (9.1-12.4); NEUTROPHILS ABSOLUTE AUTO 9.48 K/mm3 (1.96-9.15); NEUTROPHILS PERCENT AUTO 76 % (41-73); Platelet Count 212 K/mm3 (150-400); RDW Coefficient Variation 13.3 % (11.7-14.2); RDW Standard Deviation 44.9 fL (35.1-46.3); Red Blood Cell Count 4.76 M/mm3 (4.30-5.90); White Blood Cell Count 12.42 K/mm3 (4.00-11.30)
[2024-12-30 06:11] LABS: International Normalized Ratio 1.63; Prothrombin Time Results 16.8 Sec (9.7-11.5)
[2024-12-30 06:18] LABS: Albumin, Blood 2.8 g/dL (3.4-5.0); Albumin/Globulin Ratio 0.7 (0.8-1.8); Bilirubin, Total 2.4 mg/dL (0.1-1.0); Bun/Creatinine Ratio 14.7 (12.0-20.0); Creatinine, Blood 1.02 mg/dL (0.60-1.20); Globulin, Blood 3.8 g/dL (2.2-4.0); Potassium, Blood 2.9 mmol/L (3.5-5.5); Total Protein, Blood 6.6 g/dL (6.4-8.2)
--- NOTE | 2024-12-30 06:36 | NUR ---
SHIFT SUMMARY: Pt admitted for acute on chronic HFrEF and is a full code. Is alert and able to make needs known. ADLs have been SBA. pain was managed with PRN medications. He stated that he was having chest pain at one point during shift. Was given nitro x2. This was effective for the pain. Notified provider at start of shift of report of PE. provider started lovenox in addition to his normal warfarin.
[2024-12-30] MEDS ORDERED: NS 250 ML IV PRN (07:40)
[2024-12-30] MEDS ORDERED: Potassium Chloride 10 Meq Tablet SA PO ONE (08:00)
[2024-12-30] MEDS ORDERED: Potassium Chl 20MEQ/Water100ML 100 ML IV SCH (08:05)
[2024-12-30] MEDS ORDERED: Folic Acid 1 MG TAB PO SCH (09:00)
[2024-12-30] MEDS ORDERED: Tamsulosin HCl 0.4 MG Cap PO SCH (09:00)
[2024-12-30] MEDS ORDERED: Losartan Potassium 25 MG Tab PO SCH (09:00)
[2024-12-30] MEDS ORDERED: Metoprolol Succinate 50 MG TABCR PO SCH (09:00)
[2024-12-30] MEDS ORDERED: Furosemide 40 MG Tab PO SCH (09:00)
[2024-12-30] MEDS ORDERED: Empagliflozin 10 MG TAB PO SCH (09:00)
[2024-12-30] MEDS ORDERED: Sertraline HCl 100 MG Tab PO SCH (09:00)
[2024-12-30] MEDS ORDERED: Calcium Carbonate 1,250 MG TABLET PO SCH (09:00)
[2024-12-30] MEDS ORDERED: Pravastatin Sodium 20 MG Tab PO SCH (09:00)
--- NOTE | 2024-12-30 10:24 | NUR ---
PT C/O 5/10 CHEST PAIN RADIATING TO L ARM. EKG PERFORMED. THIS RN NOTIFIED . NEW ORDERS RECEIVED, EMAR UPDATED.
[2024-12-30] MEDS ORDERED: HYDROmorphone HCl/Pf 1MG SYR IV PRN (10:33)
[2024-12-30] MEDS ORDERED: HYDROmorphone HCl/Pf 1MG SYR IV ONE (10:35)
--- NOTE | 2024-12-30 11:26 | NUR ---
Spiritual Care | Pt. request Pt. is awake in bed and welcomed my visit Pt. verbalized apologies because he felt a "little loopy." With patience and a calming presence this improvement manager facilitated a lengthy life review. Pt. verbalized matters of his early years involved in [employer] (until he was 41). Listened with interest and empathy. Pt. verbalzied how a fall from 16th seemed to trigger his current health issues. Considered matters of melvin and belief, as well as his commitment to his taoism in [place]. Pt. is overall very pleasant. Prayed with Pt. Pt. verbalized gratitude for the spiritual care visit.
[2024-12-30 14:26] LABS: Creatinine, Blood 1.17 mg/dL (0.60-1.20); Potassium, Blood 4.2 mmol/L (3.5-5.5)
--- NOTE | 2024-12-30 17:43 | NUR ---
SHIFT SUMMARY PT A&OX4, TOLERATING PO, VOIDING, AND PAIN MANAGED PER EMAR. PT C/O CHEST PAIN THIS AM, EKG COMPLETED, AND NEW ORDERS RECEIVED. SEE PREVIOUS NOTE. TROP WNL AND TELE PLACED. PT REMAINS TACYCARDIC, PROVIDER AWARE. K 2.9 THIS AM, IV INF AND ORAL K GIVEN, K NOW 4.2. ECHO COMPLETED THIS SHIFT. NO OTHER ACUTE CHANGES. CALL LIGHT WITHIN REACH AND PT ABLE TO MAKE NEEDS KNOWN.
[2024-12-31] VITALS (10 sets, daily range): BP systolic 88–114; BP diastolic 59–84
[2024-12-31 06:13] LABS: BASOPHILS ABSOLUTE AUTO 0.04 K/mm3 (0.00-0.23); BASOPHILS PERCENT AUTO 0 % (0-2); EOSINOPHILS ABSOLUTE AUTO 0.28 K/mm3 (0.00-0.68); EOSINOPHILS PERCENT AUTO 3 % (0-6); Hematocrit 43.1 % (37.0-53.0); Hemoglobin 14.5 g/dL (13.5-17.5); IMMATURE GRAN ABSOLUTE AUTO 0.04 K/mm3 (0.00-0.10); IMMATURE GRAN PERCENT AUTO 0 % (0-1); LYMPHOCYTES ABSOLUTE AUTO 1.04 K/mm3 (0.84-5.20); LYMPHOCYTES PERCENT AUTO 10 % (21-46); MONOCYTES ABSOLUTE AUTO 1.54 K/mm3 (0.16-1.47); MONOCYTES PERCENT AUTO 14 % (4-13); Mean Corpuscular HGB 31.5 pg (26.0-34.0); Mean Corpuscular HGB Conc 33.6 g/dL (31.5-36.5); Mean Corpuscular Volume 94 fL (80-100); Mean Platelet Volume 10.9 fL (9.1-12.4); NEUTROPHILS ABSOLUTE AUTO 8.03 K/mm3 (1.96-9.15); NEUTROPHILS PERCENT AUTO 73 % (41-73); Platelet Count 216 K/mm3 (150-400); RDW Coefficient Variation 13.5 % (11.7-14.2); RDW Standard Deviation 46.1 fL (35.1-46.3); Red Blood Cell Count 4.61 M/mm3 (4.30-5.90); White Blood Cell Count 10.97 K/mm3 (4.00-11.30)
[2024-12-31 06:25] LABS: International Normalized Ratio 1.77; Prothrombin Time Results 18.2 Sec (9.7-11.5)
[2024-12-31 06:41] LABS: Bun/Creatinine Ratio 17.9 (12.0-20.0); Calcium, Blood 8.2 mg/dL (8.5-10.1); Creatinine, Blood 1.34 mg/dL (0.60-1.20); Potassium, Blood 3.9 mmol/L (3.5-5.5)
[2024-12-31] MEDS ORDERED: Carvedilol 6.25 MG Tab PO SCH (17:00)
[2024-12-31] MEDS ORDERED: Furosemide 10 MG/ML 4ML Vial IV SCH (18:00)
[2024-12-31] MEDS ORDERED: Warfarin Sodium 5 MG Tab PO ONE (18:00)
--- NOTE | 2024-12-31 18:13 | NUR ---
SHIFT SUMMARY PT HAD SEVERAL LOW/SOFT BP'S, BUT ASYMPTOMATIC THIS SHIFT. BP MEDS AND LASIX HELD THIS AM. EMAR UPDATED W/ BP MEDS AND LASIX PARAMETERS. NO OTHER ACUTE CHANGES. CALL LIGHT WITHIN REACH AND PT ABLE TO MAKE NEEDS KNOWN.
--- NOTE | 2024-12-31 21:59 | NUR ---
small amount of rectal bleeding noted this pm, will notify
[2025-01-01] VITALS (7 sets, daily range): BP systolic 96–121; BP diastolic 57–84
--- NOTE | 2025-01-01 03:59 | NUR ---
PT CONCERNED ABOUT BLEEDING, MD NOTIFIED WILL CONTINUE TO MONITOR. VBS WNL, A&O X4, PO INTAKE WNL, UP TO BR INDEPENDENTLY. TELE NSR WITH BBB, PLAN TO MONITOR INR UNTIL >2.0.
[2025-01-01 05:41] LABS: Hematocrit 42.6 % (37.0-53.0); Hemoglobin 14.4 g/dL (13.5-17.5); Mean Corpuscular HGB 31.8 pg (26.0-34.0); Mean Corpuscular HGB Conc 33.8 g/dL (31.5-36.5); Mean Corpuscular Volume 94 fL (80-100); Mean Platelet Volume 11.5 fL (9.1-12.4); Platelet Count 228 K/mm3 (150-400); RDW Coefficient Variation 13.4 % (11.7-14.2); RDW Standard Deviation 45.8 fL (35.1-46.3); Red Blood Cell Count 4.53 M/mm3 (4.30-5.90); White Blood Cell Count 9.78 K/mm3 (4.00-11.30)
[2025-01-01 06:00] LABS: International Normalized Ratio 1.66; Prothrombin Time Results 17.1 Sec (9.7-11.5)
[2025-01-01 06:12] LABS: Albumin/Globulin Ratio 0.6 (0.8-1.8); Bilirubin, Total 1.1 mg/dL (0.1-1.0); Calcium, Blood 8.6 mg/dL (8.5-10.1); Creatinine, Blood 1.27 mg/dL (0.60-1.20); Globulin, Blood 4.8 g/dL (2.2-4.0); Potassium, Blood 4.1 mmol/L (3.5-5.5); Total Protein, Blood 7.8 g/dL (6.4-8.2)
--- NOTE | 2025-01-01 17:42 | NUR ---
SHIFT SUMMARY PT C/O BLOOD COMING OUT OF HIS RECTUM. THIS RN VISUALIZED SMALL HEMORRHOID. NOTIFIED DURING AM ROUND. PT HAD LOW BP X2 MAP >65 AND ASYMPTOMATIC. PHARMACY MANAGING WARFARIN DOSING W/ DOSING CHANGE THIS SHIFT. NO OTHER ACUTE CHANGES. CALL LIGHT WITHIN REACH AND PT ABLE TO MAKE NEEDS KNOWN.
[2025-01-01] MEDS ORDERED: Warfarin Sodium 7.5 MG Tab PO ONE (18:00)
[2025-01-02 02:40] VITALS: BP 105/73
--- NOTE | 2025-01-02 04:29 | NUR ---
PT A&O X4, VS WNL, UOP WNL, PO INTAKE FAIR. PAIN SIGNIFICANT, BUT APPEARS DECREASED SINCE PREVIOUS NIGHT. MEDICATED X1 WITH DILAUDID, AND X1 WITH OXYCODONE. L/S ARE CLEAR IN ALL FIELD EXCEPT RUL WHICH IS MILDLY DECREASED. PT REMAINS ON RA. TELE IS NSR WITH BBB, AND A 1ST DEGREE BLOCK IN 80'S. REMAINS ON SQ LOVENOX AND COUMADIN WITH LAST INR 1.66. PT INDEPENDENT IN ROOM, AND CAN USE CALL SYSTEM APPROPRIATLY.
[2025-01-02 06:15] LABS: Hematocrit 40.2 % (37.0-53.0); Hemoglobin 13.6 g/dL (13.5-17.5); Mean Corpuscular HGB 31.5 pg (26.0-34.0); Mean Corpuscular HGB Conc 33.8 g/dL (31.5-36.5); Mean Corpuscular Volume 93 fL (80-100); Mean Platelet Volume 11.7 fL (9.1-12.4); Platelet Count 215 K/mm3 (150-400); RDW Coefficient Variation 13.1 % (11.7-14.2); RDW Standard Deviation 44.8 fL (35.1-46.3); Red Blood Cell Count 4.32 M/mm3 (4.30-5.90); White Blood Cell Count 7.77 K/mm3 (4.00-11.30)
[2025-01-02 06:27] LABS: International Normalized Ratio 2.65; Prothrombin Time Results 26.4 Sec (9.7-11.5)
[2025-01-02 06:39] LABS: Albumin, Blood 2.7 g/dL (3.4-5.0); Albumin/Globulin Ratio 0.6 (0.8-1.8); Bilirubin, Total 0.7 mg/dL (0.1-1.0); Bun/Creatinine Ratio 25.9 (12.0-20.0); Calcium, Blood 8.3 mg/dL (8.5-10.1); Creatinine, Blood 1.08 mg/dL (0.60-1.20); Globulin, Blood 4.2 g/dL (2.2-4.0); Potassium, Blood 3.3 mmol/L (3.5-5.5); Total Protein, Blood 6.9 g/dL (6.4-8.2)
[2025-01-02 07:31] VITALS: BP 114/88
--- NOTE | 2025-01-02 08:24 | NUR ---
CALLED DR. GIBBONS TO REPORT PATIENT INR OF 2.65 AND K+ OF 3.3. DR. GIBBONS ADVISED TO HOLD THE LOVENOX 120MG UNTIL SHE HAS TIME TO REVIEW LAB TRENDS. PULLED MEDICATION AND HELD, IT IS IN HIS DRAWER FOR NOW.
[2025-01-02] MEDS ORDERED: Potassium Chloride 20 MEQ TabCR PO ONE (08:30)
[2025-01-02 14:59] VITALS: BP 100/65
--- NOTE | 2025-01-02 16:19 | NUR ---
Spiritual care visit conducted. Patient is lying in bed and alert. 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 We also discuss his medical history, his current medical condition and his hopes for the future. He is tearful at times as he talks about the about the difference in his life before he was a [employer]ism compared to the compassion, patience and love he has for people today. He, of course, admits to having many imperfections but states that he was not a good person and had inflicted harm on other humans without a thought. 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 I celebrated the massive change, encouraged self-care, and provided therapeutic listening and prayer. The patient responded well and showed signs of greater peace.
[2025-01-02] MEDS ORDERED: Warfarin Sodium 7.5 MG Tab PO SCH (18:00)
--- NOTE | 2025-01-02 18:28 | NUR ---
PATIENTS BROTHER VISITED HIM TODAY AND WAS PERSISTANT ABOUT TAKING PATIENT OUT FOR "FRESH AIR" BROTHER AND PATIENT WERE ADVISED OF THE HOSPITAL POLICY FOR PATIENTS ADMITTED TO MEDICAL FLOOR TO NOT LEAVE THE FLOOR, AND EXPLANATION OF RATIONALE WAS GIVEN TO BOTH. BOTH PT AND HIS BROTHER COMPLIED. PATIENT HAD 2 DOSES OF OXY FOR PAIN IN CHEST TODAY, LAST WAS AT 181. HAD MULTIPLE BM'S THAT REQUIRED TOILET PLUNGING. MOSTLY SLEPT THROUGHOUT THE DAY. WANTS TO GO HOME TOMORROW. DR. GIBBONS WANTS 2 CONSECUTIVE DAYS OF THERAPEUTIC INR BEFORE HE CAN DISCHARGE. HE IS CURRENLTY SITTING UP EATING HIS DINNER, CALL LIGHT IS WITHIN REACH.
[2025-01-02 20:22] VITALS: BP 93/65
[2025-01-02 23:34] VITALS: BP 91/59
[2025-01-03] VITALS (7 sets, daily range): BP systolic 90–129; BP diastolic 62–91
[2025-01-03 06:19] LABS: Hematocrit 42.6 % (37.0-53.0); Hemoglobin 14.8 g/dL (13.5-17.5); Mean Corpuscular HGB 32.1 pg (26.0-34.0); Mean Corpuscular HGB Conc 34.7 g/dL (31.5-36.5); Mean Corpuscular Volume 92 fL (80-100); Mean Platelet Volume 11.2 fL (9.1-12.4); Platelet Count 249 K/mm3 (150-400); RDW Coefficient Variation 13.3 % (11.7-14.2); Red Blood Cell Count 4.61 M/mm3 (4.30-5.90); White Blood Cell Count 7.03 K/mm3 (4.00-11.30)
[2025-01-03 06:33] LABS: International Normalized Ratio 3.96; Prothrombin Time Results 38.3 Sec (9.7-11.5)
[2025-01-03 06:51] LABS: Albumin, Blood 2.7 g/dL (3.4-5.0); Albumin/Globulin Ratio 0.6 (0.8-1.8); Bilirubin, Total 0.6 mg/dL (0.1-1.0); Bun/Creatinine Ratio 23.1 (12.0-20.0); Calcium, Blood 8.3 mg/dL (8.5-10.1); Creatinine, Blood 1.08 mg/dL (0.60-1.20); Globulin, Blood 4.5 g/dL (2.2-4.0); Magnesium, Blood 2.3 mg/dL (1.6-2.4); Potassium, Blood 3.4 mmol/L (3.5-5.5); Total Protein, Blood 7.2 g/dL (6.4-8.2)
--- NOTE | 2025-01-03 16:17 | NUR ---
The patient is standing in his room and in his street clothes. He tells me his disappointment about the lack of communication. He says that at around 10am today his doctor had stated that he was going home this day. After 3pm he was told by his RN that he would not be leaving to today. He was wanting some understanding about why he was not informed that he would not be discharged today. We talk about there must be something missing here and that we should wait to find out what it might be. Perhaps there is a good explanation. We then talk about his life, his boat, his parents and his furture hopes. He seems much more relaxed and shows a reduction in stress. I will continue to remain availble
--- NOTE | 2025-01-03 16:32 | NUR ---
SHIFT SUMMARY PT AOX4, COOPERATIVE, ABLE TO MAKE NEEDS KNOWN. PT IS IND IN ROOM. ON TELE, ROOM AIR. PT WAS SUPPOSED TO DC TODAY BUT INR IS ELEVATED OPTING FOR STAY OVERNIGHT PER MD. PT DID BECOME IRRITATED DUE TO STAYING AN EXTRA DAY BUT HAS CALMED DOWN SINCE THEN. BED IN LOWEST POSITION, CALL LIGHT WITHIN REACH.
[2025-01-04 02:51] VITALS: BP 119/78
[2025-01-04 06:41] LABS: International Normalized Ratio 2.25; Prothrombin Time Results 22.7 Sec (9.7-11.5)
[2025-01-04 07:22] VITALS: BP 140/82
[2025-01-04 11:28] VITALS: BP 106/61
[2025-01-04] MEDS ORDERED: LOSA25 PO (12:13)
[2025-01-04] MEDS ORDERED: TAMS.4ER PO (12:13)
--- NOTE | 2025-01-04 12:47 | NUR ---
PATIENT D/C'D TO HOME WITH FAMILY. DC INSTRUCTIONS AND EDUCATION DISCUSSED WITH PATIENT AND COPY PROVIDED. RX MEDICATIONS FAXED TO [facility]. PATIENT DENIES ANY FURTHER QUESTIONS OR CONCERNS.
[2025-01-04] MEDS ORDERED: Warfarin Sodium 5 MG Tab PO SCH (18:00)
== END 2025-01-04 12:30 | disposition home or self-care (01) | DRG 175 ==
LOC: ER 07:30 → MEDS 12:06
PROVIDERS: Emergency Medicine; Internal Medicine; ADMIT Family Medicine
DX: I26.99 Other pulmonary embolism without acute cor pulmonale (principal); I50.23 Acute on chronic systolic (congestive) heart failure; E87.1 Hypo-osmolality and hyponatremia; J96.11 Chronic respiratory failure with hypoxia; I42.0 Dilated cardiomyopathy; R04.2 Hemoptysis; I50.32 Chronic diastolic (congestive) heart failure; I11.0 Hypertensive heart disease with heart failure; Z99.81 Dependence on supplemental oxygen; F15.10 Other stimulant abuse, uncomplicated; F12.90 Cannabis use, unspecified, uncomplicated; K76.0 Fatty (change of) liver, not elsewhere classified; F32.A Depression, unspecified; I87.2 Venous insufficiency (chronic) (peripheral); E87.6 Hypokalemia; E78.5 Hyperlipidemia, unspecified; K64.9 Unspecified hemorrhoids; T50.2X5A Adverse effect of carbonic-anhydrase inhibitors, benzothiadiazides and other diuretics, initial encounter; N40.0 Benign prostatic hyperplasia without lower urinary tract symptoms; E66.9 Obesity, unspecified; Z68.37 Body mass index [BMI] 37.0-37.9, adult; M54.9 Dorsalgia, unspecified; G89.29 Other chronic pain; Z86.73 Personal history of transient ischemic attack (TIA), and cerebral infarction without residual deficits; Z86.711 Personal history of pulmonary embolism; Z86.718 Personal history of other venous thrombosis and embolism; Z87.01 Personal history of pneumonia (recurrent); Z90.49 Acquired absence of other specified parts of digestive tract; Z98.890 Other specified postprocedural states; Z95.810 Presence of automatic (implantable) cardiac defibrillator; Z79.1 Long term (current) use of non-steroidal anti-inflammatories (NSAID); Z79.01 Long term (current) use of anticoagulants; Z79.84 Long term (current) use of oral hypoglycemic drugs; Z79.899 Other long term (current) drug therapy; Z88.1 Allergy status to other antibiotic agents; Z88.8 Allergy status to other drugs, medicaments and biological substances; Z86.79 Personal history of other diseases of the circulatory system; Z87.828 Personal history of other (healed) physical injury and trauma; Z91.148 Patient's other noncompliance with medication regimen for other reason
CPT/HCPCS: 36415; 71045; 71260; 76705; 80048; 80053; 83735; 83880; 84484; 85025; 85027; 85379; 85610; 93005; 93010; 96374; 96375; 99285-25; A9270; C8929; J1171; J1650; J1938; J2270; J2405; J3480; J7050; Q9957; Q9967

== ENCOUNTER 2025-05-16 07:36 | Day surgery (SDC) | payer MEDICARE ==
[2025-05-16] VITALS (8 sets, daily range): BP systolic 125–144; BP diastolic 76–114
[~2025-05-16] VITALS: Ht 180.3 cm; Wt 120.9 kg
[~2025-05-16 07:36] MED LIST changes: +CALCIUM CARBON500 M4 PO; +Crestor40 MG PO; +FOLIC ACID0.8 MG PO; +METO100ER PO; +VITAMIN B COMPLEX
[2025-05-16] MEDS ORDERED: Verapamil HCL 2.5 MG/ML 2ML Injection ONE (08:00)
[2025-05-16] MEDS ORDERED: Heparin Sodium 1000 Units/ML 10ML MDV ONE (08:00)
[2025-05-16] MEDS ORDERED: NS 0 ML IV ONE (08:01)
[2025-05-16] MEDS ORDERED: NS 1,000 ML IV ONE ×2 (08:01→08:07)
[2025-05-16] MEDS ORDERED: Nitroglycerin 2 MG/20 ML BTL ONE (08:01)
[2025-05-16] MEDS ORDERED: FentaNYL Citrate 50 MCG/ML 2 ML Injection ONE (08:06)
[2025-05-16] MEDS ORDERED: Midazolam HCl 1MG / ML 2ML Vial ONE (08:07)
[2025-05-16] MEDS ORDERED: NS 250 ML IV ONE (10:00)
--- NOTE | 2025-05-16 10:32 | NUR ---
PT RETURNED TO RECOVERY ROOM IN RECLINER. R RADIAL TR BAND SITE SOFT NON-TENDER WITH NO HEMATOMA, NO PULSATILE BLEEDING WITH RIGHT WRIST BRACE IN PLACE. R AC HAS 6 FR X 10 CM VENOUS SHEATH SECURED IN PLACE WITH TEGADERM DRESSING WITH NO BLEEDING OR HEMATOMA. PT EATING FOOD AND DRINKING FLUID. PT'S FATHER IN ROOM. CALL LIGHT IN REACH.
--- NOTE | 2025-05-16 10:45 | NUR ---
NO CHANGES TO R RAD SITE OR R AC SITE.
--- NOTE | 2025-05-16 11:00 | NUR ---
NO CHANGES TO EITHER R RAD OR R AC SITES.
--- NOTE | 2025-05-16 11:20 | NUR ---
INITIAL 2 CC OF AIR REMOVED FROM RIGHT RADIAL TR BAND. SITE C/D/I SOFT/NONTENDER, NO EVIDENCE OF BLEEDING. VSS ON RA. PATIENT RESTING COMFORTABLY IN RECLINER, DENYING ANY PAIN.
--- NOTE | 2025-05-16 11:45 | NUR ---
ALL AIR REMOVED FROM RIGHT RADIAL TR BAND. SITE C/D/I SOFT/NONTENDER, NO EVIDENCE OF BLEEDING. VSS ON RA. PATIENT DENYING ANY PAIN. PATIENT RESTING COMFORTABLY IN RECLINER AND TOLERATING PO INTAKE WELL
--- NOTE | 2025-05-16 12:34 | NUR ---
6 FR AC VENOUS SHEATH WAS REMOVED AND MANUAL PRESSURE WAS HELD WITH TONIA FOR 15 MIN. TO OBTAIN HEMOSTASIS. R AC SITE SOFT NON-TENDER WITH NO HEMATOMA AND SLIGHT TRACK OOZING WITH INTACT DRESSING IN PLACE. DEFLATED R RADIAL TR BAND WAS REMOVED AND POLYMEM PLACED OVER R RAD SITE WITH RIGHT WRIST BOARD IN PLACE. R RAD SITE STILL SOFT NON-TENDER WITH NO HEMATOMA, NO PULSATILE BLEEDING. DISCHARGE INSTRUCTIONS REVIEWED ALL QUESTIONS ANSWERED. PT ESCORTED OUT VIA WHEELCHAIR ESCORT.
== END 2025-05-16 12:35 | disposition home or self-care (01) ==
LOC: MHTC 07:36
DX: I42.0 Dilated cardiomyopathy (principal); Z95.810 Presence of automatic (implantable) cardiac defibrillator; I50.20 Unspecified systolic (congestive) heart failure; I63.9 Cerebral infarction, unspecified; I42.8 Other cardiomyopathies; I26.99 Other pulmonary embolism without acute cor pulmonale; R00.0 Tachycardia, unspecified; I11.0 Hypertensive heart disease with heart failure; E11.9 Type 2 diabetes mellitus without complications; I25.10 Atherosclerotic heart disease of native coronary artery without angina pectoris; I27.20 Pulmonary hypertension, unspecified; Z88.1 Allergy status to other antibiotic agents; Z88.8 Allergy status to other drugs, medicaments and biological substances; Z79.899 Other long term (current) drug therapy
CPT/HCPCS: 76937; 93456; C1769; C1887; C1894; J1644; J2250; J3010; J7030; J7050; Q9967

== ENCOUNTER 2025-06-06 16:03 | Emergency (ER) | payer MEDICARE ==
[~2025-06-06] VITALS: Ht 180.3 cm; Wt 120.2 kg
[2025-06-06 16:15] VITALS: BP 137/119
[2025-06-06] MEDS ORDERED: Fluorescein Sod 1MG Opth Strips LEFTEYE ONE (17:35)
[2025-06-06] MEDS ORDERED: Proparacaine 0.5% Opth Soln 15 ML BTL LEFTEYE ONE (17:35)
[2025-06-06] MEDS ORDERED: POLYTRIM EYE DR10 M1 RIGHTEYE (19:23)
== END 2025-06-06 19:31 | disposition home or self-care (01) ==
LOC: ER 16:03
DX: T15.02XA Foreign body in cornea, left eye, initial encounter (principal); I11.0 Hypertensive heart disease with heart failure; I50.30 Unspecified diastolic (congestive) heart failure; Z88.8 Allergy status to other drugs, medicaments and biological substances; Z88.1 Allergy status to other antibiotic agents; Z79.01 Long term (current) use of anticoagulants; Z79.899 Other long term (current) drug therapy; Z95.810 Presence of automatic (implantable) cardiac defibrillator
CPT/HCPCS: 99282; A9270; A9270-GY

== ENCOUNTER 2025-08-14 11:40 | Emergency (ER) | payer MEDICARE ==
[~2025-08-14] VITALS: Ht 182.9 cm; Wt 122.5 kg
[~2025-08-14 11:40] MED LIST changes: +POLYTRIM EYE DR10 M1 RIGHTEYE
[2025-08-14 12:16] LABS: BASOPHILS ABSOLUTE AUTO 0.04 K/mm3 (0.00-0.23); BASOPHILS PERCENT AUTO 1 % (0-2); EOSINOPHILS ABSOLUTE AUTO 0.13 K/mm3 (0.00-0.68); EOSINOPHILS PERCENT AUTO 2 % (0-6); Hematocrit 48.0 % (37.0-53.0); Hemoglobin 16.5 g/dL (13.5-17.5); IMMATURE GRAN ABSOLUTE AUTO 0.03 K/mm3 (0.00-0.10); IMMATURE GRAN PERCENT AUTO 0 % (0-1); LYMPHOCYTES ABSOLUTE AUTO 1.32 K/mm3 (0.84-5.20); LYMPHOCYTES PERCENT AUTO 18 % (21-46); MONOCYTES ABSOLUTE AUTO 0.91 K/mm3 (0.16-1.47); MONOCYTES PERCENT AUTO 12 % (4-13); Mean Corpuscular HGB Conc 34.4 g/dL (31.5-36.5); Mean Corpuscular Volume 94 fL (80-100); NEUTROPHILS ABSOLUTE AUTO 5.11 K/mm3 (1.96-9.15); NEUTROPHILS PERCENT AUTO 68 % (41-73); NRBC ABSOLUTE 0.00 K/mm3 (0.00-0.02); NRBC Auto 0.0 /100 WBC (0.0-0.2); Platelet Count 233 K/mm3 (150-400); RDW Coefficient Variation 13.2 % (11.7-14.2); RDW Standard Deviation 45.7 fL (35.1-46.3)
[2025-08-14 12:48] LABS: Alanine Aminotransfer (ALT/SGP 110.0 U/L (12-78); Albumin, Blood 3.6 g/dL (3.4-5.0); Albumin/Globulin Ratio 0.8 (0.8-1.8); Anion Gap 8.0 mmol/L (3-11); Aspartate Aminotrans (AST/SGOT 51.0 U/L (12-37); Bilirubin, Total 1.2 mg/dL (0.1-1.0); Blood Urea Nitrogen 15.0 mg/dL (8-24); CO2, Blood 27.0 mmol/L (21-32); Calcium, Blood 9.0 mg/dL (8.5-10.1); Chloride, Blood 104.0 mmol/L (98-108); Creatinine, Blood 1.02 mg/dL (0.60-1.20); Globulin, Blood 4.5 g/dL (2.2-4.0); Glucose, Blood 112.0 mg/dL (70-99); Potassium, Blood 4.5 mmol/L (3.5-5.5); Sodium, Blood 134.0 mmol/L (136-145); Total Protein, Blood 8.1 g/dL (6.4-8.2)
[2025-08-14 13:04] LABS: Prothrombin Time Results 15.8 Sec (9.7-11.5)
[2025-08-14] MEDS ORDERED: DOXY100 PO (17:37)
[2025-08-14 17:47] VITALS: BP 131/83
== END 2025-08-14 17:49 | disposition home or self-care (01) ==
LOC: ER 11:40
PROVIDERS: Emergency Medicine
DX: J18.9 Pneumonia, unspecified organism (principal); I11.0 Hypertensive heart disease with heart failure; I50.30 Unspecified diastolic (congestive) heart failure; Z86.73 Personal history of transient ischemic attack (TIA), and cerebral infarction without residual deficits; Z95.0 Presence of cardiac pacemaker; Z88.1 Allergy status to other antibiotic agents; Z88.8 Allergy status to other drugs, medicaments and biological substances; Z79.84 Long term (current) use of oral hypoglycemic drugs; Z79.01 Long term (current) use of anticoagulants; Z79.899 Other long term (current) drug therapy
CPT/HCPCS: 71046; 80053; 83880; 84484; 85025; 85610; 93005; 93010; 99285-25; A9270